=== PATIENT | female | born 1980 | race Caucasian/White ===

== ENCOUNTER 2017-04-18 00:21 | Emergency (ER) | payer OTHER ==
[~2017-04-18] VITALS: Ht 175.3 cm; Wt 150.0 kg
[2017-04-18 00:33] VITALS: BP 167/90; PULSE 91; RESP 24; O2SAT 100
--- NOTE | 2017-04-18 00:45 | ED.REPORT ---
HPI-Chest Pain Under 40 Date of Service Apr 18, 2017 ED Provider: Barrie Rosenberg MD Pt is a 36 year old female with a history of GERD and appendectomy who presents to the ED complaining of epigastric abdominal pain onset 16:00 today. She c/o associated SOB, dyspnea, nausea, diaphoresis, and pain radiating to her back. Pt denies vomiting, as well as swelling and pain in her calfs. She denies a history of cholecystectomy and pancreatitis. Pt described the pain as "squeezing ", tight, and sharp. The pt reports that she does not drink on a daily basis, and states that her last drink was around 3 weeks ago. Nursing Notes Stated Complaint: STOMACH/CHEST PAIN Chief Complaint: Chest Pain Nursing Notes Reviewed: Yes Allergies: Coded Allergies: No Known Allergies (Unverified , 04/18/17) General Time Seen by MD: 00:43 Chief Complaint Other (Abdominal pain) Hx Obtained From: Patient Arrived By: Walk-in Sudden in Onset?: No Onset Occurred: 5 - 8 hours ago Symptom Duration: Since onset Location: : Back: Epigastric Quality: Painful, Sharp Severity: Current: Moderate Severity: Maximum: Moderate Recent Healthcare: No recent doctor visit, No recent hospitalization Similar Sx Previous: No Past Medical History Past Medical History GERD Denies: Diabetes mellitus Past Surgical History Reports: Appendectomy, Denies: Cholecystectomy Smoking History Current Every Day Smoker Social History Alcohol Use: "Social" Other Social History: Good social support Review of Systems Respiratory: Reports: Dyspnea on exertion, Shortness of breath GI: Reports: Abdominal pain, Nausea, Denies: Vomiting Musculoskeletal: Reports: Back pain, Denies: Extremity pain, Extremity swelling Skin: Reports Diaphoresis Complete sys rev & neg: except as marked. Physical Exam Initial Vital Signs Vital Signs (First) Date Time Temp Pulse Resp B/P Pulse Ox O2 Delivery O2 Flow Rate FiO2 04/18/17 00:33 37.0 91 24 167/90 100 04/18/17 02:05 Room Air Initial VS: Reviewed, Vital signs abnormal Head / Eyes: Atraumatic, Normocephalic Neck: Supple, Full range of motion Extremities: Vascular intact, Neuro intact Skin: Warm, Dry, No cyanosis Neurologic: Alert, Oriented, Nonfocal Psychiatric: Mood/affect normal, Behavior normal General/Constitutional: Awake, Alert, Cooperative Appearance / Presentation: Positive: Obese, Negative: Pale Diaphoretic Respiratory / Chest: Atraumatic, Breath sounds NL, Breath sounds = bilat, No chest tenderness Cardiovascular: Heart rate NL, Regular rhythm, Heart sounds NL No JVD Abdomen: Atraumatic, Soft, Non-tender Lower Extremity / Pelvis / MS: Atraumatic, Full range of motion, Neurologic intact, Vascular intact No calf tenderness. No ankle edema. Interpretation & Diagnostics CT PULMONARY ANGIOGRAM: IMPRESSION: No evidence for PE. Transmitted to the ED at 03:27 by Pollo Bruce M.D. Lab Results Interpretation Result Diagram: 04/18/17 0100 04/18/17 0100 Test 04/18/17 01:00 04/18/17 01:25 04/18/17 03:20 White Blood Count 8.1th/mm3 (3.8-10.1) Red Blood Count 4.95mil/mm3 (3.90-5.20) Hemoglobin 11.5g/dL (12.0-15.6) Hematocrit 36.3% (35.0-46.0) Mean Corpuscular Volume 73.3fL (81-100) Mean Corpuscular Hemoglobin 23.2pg (27.0-35.0) Mean Corpuscular Hemoglobin Concent 31.7% (32.0-37.0) Red Cell Distribution Width 15.7% (12.3-15.4) Platelet Count 306bil/L (150-400) Neutrophils (%) (Auto) 70.6% (40-74) Lymphocytes (%) (Auto) 18.4% (14-46) Monocytes (%) (Auto) 8.1% (4-12) Eosinophils (%) (Auto) 2.2% (0-5) Basophils (%) (Auto) 0.5% (0-3) D-Dimer 0.54mg/L FEU (<0.50) Sodium Level 138mEq/L (134-144) Potassium Level 3.8mEq/L (3.5-5.2) Chloride Level 98mEq/L (97-108) Carbon Dioxide Level 22mmol/L (18-29) Blood Urea Nitrogen 10mg/dL (6-20) Creatinine 0.77mg/dL (0.57-1.00) Estimat Glomerular Filtration Rate 121mL/min (>59) Glucose Level 99mg/dL (60-99) Calcium Level 9.2mg/dL (8.5-10.1) Magnesium Level 1.9mg/dL (1.6-2.6) Total Bilirubin 0.2mg/dL (0.0-1.2) Aspartate Amino Transf (AST/SGOT) 37U/L (0-50) Alanine Aminotransferase (ALT/SGPT) 39U/L (0-32) Alkaline Phosphatase 111U/L (25-150) Total Protein 7.7g/dL (6.4-8.4) Albumin 4.1g/dL (3.4-5.0) Hold Urine Received (Received) Troponin T 0.010ug/L (0.0-0.011) Lab values outside NL range: no clinical significance. Lab Results Interpretation: Elev d-dimer, troponin negative 2, EKG normal 2 ECG Interpretation ECG Interpretation: Sinus rhythm with a rate of 76. No previous ECG available for comparison. Time: 01:04 Interpreted by: ED physician ECG Interpretation: Sinus rhythm with a rate of 71. Time: 03:45 X-Ray Chest Interpretation Chest Xray Interpretation: Negative View: AP & lat Interpretation / Wet Read by: Wet read ED physician Re-Eval/Medical Decision Med Decision/Clinical Course 36-year-old female with left sternal pleuritic chest pain with pressure. EKG 2 and troponin 2 were negative. Her d-dimer was very mildly elevated. CT PE angiography of the chest showed no evidence of pulmonary embolism or other cardio-pulmonary abnormalities. Source of Hx: Old records Re-Evaluation/Progress #1: Time of Eval: 02:40 Re-Evaluation/Progress Note: Pt rechecked. Informed pt of results and need to look for a blood clot. All questions were answered. Re-Evaluation/Progress #2: Time of Eval: 03:32 Re-Evaluation/Progress Note: Pt rechecked. Informed pt of plan for discharge. Pt understands and agrees with plan for discharge. F/U instructions and RTER warnings given. All questions addressed. Counseled Regarding: Diagnosis, Lab results, Need for follow-up, When/why to return to ED Discharge & Departure Primary Impression: Chest pain with low risk for cardiac etiology Disposition: Home Discharge Condition All VS Reviewed: Yes Condition: Stable Patient Instructions: Chest Pain (ED) Additional Instructions: Both of your EKGs are normal. Both sets of cardiac enzymes are normal, indicating low likelihood of any heart damage. Your d-dimer was mildly elevated indicating the possibility of a blood clot in your lungs. CT scan of your chest, however, did not show any evidence of CAT scan or other significant abnormalities. Use Tylenol and/or ibuprofen as needed for pain. Follow-up with your regular doctor. Discuss possible stress test, but at the present time I think the risk of this pain being related to your heart is very low. Referrals: [facility] Scribe Attestation Portions of this note were transcribed by Jolly Salcedo. I, Dr. Rosenberg personally performed the history, physical exam and medical decision-making; I reviewed and confirmed the accuracy of the information in the transcribed note. Signed by: Richa Méndez, 04/18/17 and 02:30. copies to: [facility] Barrie Rosenberg MD Apr 18, 2017 00:45 Jolly Cruz Apr 18, 2017 00:57
[2017-04-18 01:21] LABS: BASOPHILS % (AUTO) 0.5 % (0-3); EOSINOPHILS % (AUTO) 2.2 % (0-5); MONOCYTES % (AUTO) 8.1 % (4-12); Mean Corpuscular Hemoglobin 23.2 pg (27.0-35.0); Mean Corpuscular Volume 73.3 fL (81-100); NEUTROPHILS % (AUTO) 70.6 % (40-74); Platelet Count 306 bil/L (150-400)
[2017-04-18 01:50] LABS: TROPONIN T 0.01 ug/L (0.0-0.011)
[2017-04-18 02:01] LABS: Magnesium 1.9 mg/dL (1.6-2.6)
[2017-04-18 02:05] VITALS: BP 154/91; PULSE 89; RESP 22; O2SAT 100
[2017-04-18 03:19] VITALS: BP 151/90; PULSE 82; RESP 18; O2SAT 100
[2017-04-18] MEDS ORDERED: Ketorolac 15 mg/mL Inj IVPUSH ONE (03:35)
[2017-04-18 04:02] VITALS: BP 144/87; PULSE 87; RESP 13; O2SAT 100
--- NOTE | 2017-04-18 09:02 | DRSVH ---
PROCEDURE: X-RAY CHEST, TWO VIEWS ([id number]) INDICATIONS: chest pain TECHNIQUE: 2 views of the chest were acquired. COMPARISON: None. FINDINGS: Surgical changes and devices: None. Lungs and pleura: No pleural effusions or pneumothorax. Lungs are clear. Mediastinum: Mediastinal contours are normal. Heart size is normal. Bones and chest wall: No suspicious bony abnormalities. Soft tissues appear unremarkable. IMPRESSION: Reduced inspiration, no acute disease. Dictated by: Kobe Wise M.D. on 04/18/2017 at 9:00 Approved by: Kobe Wise M.D. on 04/18/2017 at 9:00
--- NOTE | 2017-04-18 09:43 | DRSVH ---
PROCEDURE: CT ANGIO CHEST PULMONARY EMBOLISM ([id number]) INDICATIONS: pleuritic left chest pain, elev dimer TECHNIQUE: After the administration of intravenous contrast, 2 mm thick sections acquired from the pulmonary api lashaun to the posterior costophrenic angles. 3-dimensional maximum intensity projection (MIP) coronal a nd sagittal reformats were then acquired through the thorax. For radiation dose reduction, the follo wing was used: automated exposure control, adjustment of mA and/or kV according to patient size. COMPARISON: None. FINDINGS: Image quality: Excellent. Pulmonary arteries: Pulmonary arteries are normal in size, and demonstrate no intraluminal filling d efects to suggest central pulmonary embolism. Lungs and pleura: Lungs are clear. No pleural effusions or pneumothorax. Central and peripheral ai rways are patent. Mediastinum: Heart size is normal, without pericardial effusion. No mediastinal or hilar adenopathy . Thoracic aorta is normal in caliber and enhancement. Esophagus is normal in caliber, without hiat al hernia. Bones and chest wall: No suspicious bony lesions. Ribs and thoracic spine appear intact throughout. Thyroid gland appears normal where well visualized. No axillary or supraclavicular adenopathy. Abdomen: Visualized upper abdominal solid organs appear normal in the early arterial phase of enhanc ement. IMPRESSION: No pulmonary embolus found. Source with left-sided pleuritic chest pain is not identifie d. Dictated by: Kobe Wise M.D. on 04/18/2017 at 9:41 Approved by: Kobe Wise M.D. on 04/18/2017 at 9:41
== END 2017-04-18 04:08 | disposition home or self-care (01) ==
LOC: SED 00:21
DX: R07.9 Chest pain, unspecified (principal); K21.9 Gastro-esophageal reflux disease without esophagitis; F17.200 Nicotine dependence, unspecified, uncomplicated; R11.0 Nausea; R06.02 Shortness of breath; M54.9 Dorsalgia, unspecified; R61 Generalized hyperhidrosis
CPT/HCPCS: 36415; 71020; 71275; 80053; 82948; 83735; 84484; 85025; 85378; 93005; 96374; 99285; J1885; Q9967